=== PATIENT | female | born 1970 | race American Indian/Alaskan Native ===

== ENCOUNTER 2018-06-26 09:31 | Outpatient (CLI) | payer BC ==
[2018-06-26 10:32] LABS: Hematocrit 44.2 % (30.3-42.9); Hemoglobin 14.8 gm/dl (10.1-14.3); Mean Corpuscular HGB Conc 33 % (30-34); Mean Corpuscular Hemoglobin 29 pg (28-32); Mean Corpuscular Volume 88 fl (79-97); Red Blood Count 5.04 M/mm3 (3.65-5.03)
[2018-06-26 10:33] LABS: Platelet Count 316 K/mm3 (140-440)
[2018-06-26 10:37] LABS: Bilirubin,Urine NEG (Negative); Blood,Urine MOD (Negative); Color,Urine Yellow (Yellow); Mucus,Urine FEW /HPF; Protein,Urine <15 mg/dL mg/dL (Negative); Urobilinogen,Urine < 2.0 mg/dL (<2.0)
[2018-06-26 10:49] LABS: Chol/HDL Ratio 4.1 %
[2018-06-26 10:50] LABS: Alanine Aminotransferase 17 units/L (7-56); Albumin 4.3 g/dL (3.9-5); BUN/Creatinine Ratio 13; Blood Urea Nitrogen 10 mg/dL (7-17); Calcium 9.2 mg/dL (8.4-10.2); Hemolysis Index 9
[2018-06-26 12:15] LABS: Free T4 (Free Thyroxine) 1.18 ng/dL (0.76-1.46); Hepatitis A Antibody IgM Non-Reactive (NonReactive); Hepatitis B Core IgM Non-Reactive (NonReactive); Hepatitis B Surface Antigen Non-Reactive (Negative); Hepatitis C Virus Antibody Non-Reactive (NonReactive)
--- NOTE | 2018-06-26 15:32 | Mammography Report ---
BILATERAL DIGITAL SCREENING MAMMOGRAM with CAD: 06/26/18 CLINICAL: Routine screening. COMPARISON:None available. However, a prior mammogram was apparently done at [facility]. FINDINGS: The breasts are mostly fatty. Left asymmetries on both views require comparison with the prior mammogram or additional imaging.No architectural distortion or suspicious calcifications.The right breast is negative. IMPRESSION: Left asymmetries requiring further evaluation. BI-RADS CATEGORY: 0 -- Additional Evaluation Required RECOMMENDATION: Comparison with a previous mammogram. We will attempt to obtain a prior mammogram for comparison. If we do not obtain a prior mammogram within 30 days, a revised report will be issued recommending a recall for additional imaging. Please be advised that the patient should not schedule an appointment for return until adequate time (at least 2 weeks) has passed for us to obtain the prior mammogram. ACR BI-RADS MAMMOGRAPHIC CODES: 0 = Needs additional imaging evaluation; 1 = Negative; 2 = Benign; 3 = Probably benign; 4 = Suspicious; 5 = Malignant; 6 = Known biopsy-proven malignancy COMMENT: 1. Dense breast tissue, i.e., adenosis, fibrocystic changes, etc., may obscure an underlying neoplasm. 2. Approximately 10% of cancers are not detected with mammography. 3. A negative mammography report should not delay biopsy if a clinically suspicious mass is present. COMMENT: Patient follow-up letters are generated via our [employer] application.
== END 2018-06-26 09:32 | disposition home or self-care (01) ==
LOC: LAB 09:31 → MAMMO 09:31
PROVIDERS: ATTEND Nurse Practitioner Adult Health
DX: Z12.31 Encounter for screening mammogram for malignant neoplasm of breast (principal); Z88.0 Allergy status to penicillin
CPT/HCPCS: 36415; 77067; 80053; 80061; 80074; 81001; 82306; 83036; 84439; 84443; 84481; 85027; 86592; 87529; 87591; 87806

== ENCOUNTER 2019-01-17 12:51 | Outpatient (CLI) | payer BC ==
[2019-01-17 13:34] LABS: Hematocrit 41.4 % (30.3-42.9); Hemoglobin 14.1 gm/dl (10.1-14.3); Mean Corpuscular HGB Conc 34 % (30-34); Mean Corpuscular Volume 88 fl (79-97); Platelet Count 367 K/mm3 (140-440)
[2019-01-17 14:11] LABS: Free T4 (Free Thyroxine) 1.12 ng/dL (0.76-1.46)
[2019-01-17 14:13] LABS: Alanine Aminotransferase 15 units/L (7-56); BUN/Creatinine Ratio 10; Blood Urea Nitrogen 9 mg/dL (7-17); Calcium 9.1 mg/dL (8.4-10.2); Chol/HDL Ratio 3.37 %; HDL Cholesterol 51 mg/dL (40-59); Hemolysis Index 3; LDL Cholesterol,Direct 114 mg/dL (50-130)
[2019-01-17 21:20] LABS: Hepatitis B Surface Antigen Non-Reactive (Negative); Hepatitis C Virus Antibody Non-Reactive (NonReactive)
[2019-01-23 06:57] LABS: Vitamin D, 25-OH, D2 <4 ng/mL
== END 2019-01-17 12:52 | disposition home or self-care (01) ==
LOC: LAB 12:51
PROVIDERS: ATTEND Urology
DX: E78.00 Pure hypercholesterolemia, unspecified (principal); I10 Essential (primary) hypertension; E66.01 Morbid (severe) obesity due to excess calories; F41.1 Generalized anxiety disorder; M72.2 Plantar fascial fibromatosis; R31.21 Asymptomatic microscopic hematuria; Z79.890 Hormone replacement therapy
CPT/HCPCS: 36415; 80053; 80061; 80074; 82306; 83036; 84439; 84443; 84481; 85027; 86592; 87086; 87529; 87806

== ENCOUNTER 2019-02-04 09:31 | Day surgery (SDC) | payer BC ==
[~2019-02-04 09:31] MED LIST: FLAGYL 500 MG/100 ML 500 MG/100 ML BAG IV NR
[2019-02-04] MEDS ORDERED: FLAGYL 500 MG/100 ML 500 MG/100 ML BAG IV NR (10:00)
[2019-02-04] MEDS ORDERED: NACL 0.9% 1000 ML 1,000 ML ONE (10:37)
[2019-02-04] MEDS ORDERED: NACL 0.9% 1000 ML 1,000 ML IV SCH (11:00)
[2019-02-04] MEDS ORDERED: SUBLIMAZE ONE ×2 (11:21→11:49)
[2019-02-04] MEDS ORDERED: DIPRIVAN 10 MG/ML IV ONE (11:21)
[2019-02-04] MEDS ORDERED: XYLOCAINE MPF 2% ONE (11:21)
[2019-02-04] MEDS ORDERED: DECADRON ONE (11:36)
[2019-02-04] MEDS ORDERED: NEO SYNEPHRINE ONE (11:36)
[2019-02-04] MEDS ORDERED: ZOFRAN ONE (11:36)
[2019-02-04] MEDS ORDERED: DILAUDID IV PRN (11:37)
[2019-02-04] MEDS ORDERED: MORPHINE IV PRN (11:37)
--- NOTE | 2019-02-04 11:37 | Anesthesia Consultation ---
Anesthesia Consult and Med Hx - Airway Anesthetic Teeth Evaluation: Good ROM Head & Neck: Adequate Mental/Hyoid Distance: Adequate Mallampati Class: Class II Intubation Access Assessment: Good - Pulmonary Exam CTA: Yes - Cardiac Exam Cardiac Exam: RRR - Pre-Operative Health Status ASA Pre-Surgery Classification: ASA3 Proposed Anesthetic Plan: General - Pulmonary Hx Smoking: No Hx Sleep Apnea: Yes (DX SLEEP APNEA , NO CPAP USE.) - Cardiovascular System Hx Hypertension: Yes (2006) - Central Nervous System Hx Back Pain: Yes - Other Systems Hx Cancer: No
--- NOTE | 2019-02-04 11:37 | Anesthesia Day of Surgery ---
Anesthesia Day of Surgery - Day of Surgery Patient Examined: Yes Patient H&P Reviewed: Yes Patient is NPO: Yes
[2019-02-04] MEDS ORDERED: WATER FOR IRRIG STERILE IR ONE ×2 (11:46)
--- NOTE | 2019-02-04 11:56 | Short Stay Summary ---
Short Stay Documentation Date of service: 02/04/19 - History H&P: obtained from office - Allergies and Medications Current Medications: Allergies ciprofloxacin [From Cipro] Allergy (Verified 01/22/19 18:07) Itching erythromycin base [From E-Mycin] Allergy (Verified 01/22/19 18:07) Hives vancomycin Allergy (Verified 01/22/19 18:07) Hives Home Medications Medication Instructions Recorded Confirmed Last Taken Type Estradiol 2 mg PO DAILY 01/22/19 02/04/19 02/03/19 21:00 History Ezetimibe [Zetia] 10 mg PO QDAY 01/22/19 02/04/19 02/03/19 21:00 History Mirabegron [Myrbetriq] 25 mg PO QDAY 01/22/19 02/04/19 02/03/19 21:00 History Naproxen [Naprosyn] 500 mg PO PRN PRN 01/22/19 01/22/19 Unknown History Phentermine HCl [Adipex-P] 37.5 mg PO QAM 01/22/19 01/22/19 01/22/19 History amLODIPine [Norvasc] 10 mg PO DAILY 01/22/19 02/04/19 02/03/19 21:00 History traMADol [Ultram] 50 mg PO Q4HR PRN 01/22/19 01/22/19 Unknown History Active Medications Hydromorphone HCl (Dilaudid) 0.5 mg IV Q10MIN PRN PRN Reason: Pain , Severe (7-10) Stop: 02/04/19 23:00 Sodium Chloride (Nacl 0.9% 1000 Ml) 1,000 mls @ 75 mls/hr IV DIRECT ÓSCAR Last Admin: 02/04/19 10:45 Dose: 75 mls/hr Documented by: Morphine Sulfate (Morphine) 4 mg IV Q10MIN PRN PRN Reason: Pain , Severe (7-10) Stop: 02/04/19 23:38 - Brief post op/procedure progress note Date of procedure: 02/04/19 Pre-op diagnosis: hematuria Post-op diagnosis: same Procedure: cysto, rpg, hydrodistention (500cc) Anesthesia: GETA Surgeon: TYLER DUCKWORTH Estimated blood loss: minimal Pathology: none Condition: stable - Hospital course Hospital course: macrobid & norco on chart Short Stay Discharge Plan Follow up with: CINDY BARRERA MD [Primary Care Provider] - 7 Days
[2019-02-04] MEDS ORDERED: NORCO 5/325 PO PRN (12:39)
[2019-02-04] MEDS ORDERED: NORCO 5/325 ONE (12:40)
[2019-02-04 13:21] VITALS: BP 127/58
--- NOTE | 2019-02-04 15:53 | Operative Report ---
PREOPERATIVE DIAGNOSIS: Hematuria. POSTOPERATIVE DIAGNOSIS: Hematuria. PROCEDURE: Cystoscopy, bilateral retrograde pyelograms, hydrodistention (500 mL). SURGEON: Leonel Law MD ANESTHESIA: General. ESTIMATED BLOOD LOSS: Minimal. FLUIDS: Crystalloid. COMPLICATIONS: No complications. INDICATIONS: This patient is a 48-year-old female who presented to the office with hematuria and now she complains of urinary tract infections and urinary incontinence. She previously was seen by Dr. Clementina Alfred in 2006 for urinary incontinence. She now sees Dr. Davis Medina. She underwent a recent CT of abdomen and pelvis in December 2017, normal kidneys, positive degenerative joint disease of the spine. Due to her urinary incontinence, I started empirically Myrbetriq 25 mg daily and Kegel exercises. We will proceed with cystoscopy, but she understands she may require urodynamic testing also. DESCRIPTION OF PROCEDURE: The patient was taken to the operative suite, placed in a supine position. After adequate general anesthesia, placed in a dorsal lithotomy position, prepped and draped in a sterile fashion. Pancystourethroscopy was performed with 22-Hong Konger Storz cystoscope, no urethral abnormalities in her bladder, no tumors or stones. Both ureteral orifices are in normal position. 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 Bilateral retrograde pyelograms were obtained with an 8-H[place] Konger Rojelio catheter and 8 mL of contrast. No filling defects or obstruction. Hydrodistention revealed a bladder capacity of 500 mL, did reveal a few petechial hemorrhage, but looks like it is the irritation of the pseudomembranous trigonitis. Her bladder was drained. She was extubated and taken to recovery room. She will go home on Macrobid and [place] and follow up in the office. JOB# [id number] ALBERTO/NTS
--- NOTE | 2019-02-04 17:28 | Post Anesthesia Evaluation ---
- Post Anesthesia Evaluation Patient Participated: Yes Airway Patent: Yes Stable Respiratory Function: Yes Nausea/Vomiting: No Temp > 96.8F: Yes Pain Manageable: Yes Adequeate Hydration: Yes Anesthesia Complications: No Block Receding Appropriately: Not Applicable Patient on Ventilator: No
--- NOTE | 2019-02-05 07:26 | Fluoroscopy Report ---
FLUOROSCOPY RETROGRADE UROGRAPHY: HISTORY: Microscopic hematuria. FINDINGS: Fluoroscopy was provided by radiology during retrograde urography by the urologist. 8 fluoroscopic images were captured. There is adequate filling of the ureters and intrarenal collecting systems with no filling defects or anatomic abnormalities identified. Please correlate with the procedural report if needed. IMPRESSION: Retrograde pyelograms within normal limits.
== END 2019-02-04 14:10 | disposition home or self-care (01) ==
LOC: OR 09:31
PROVIDERS: ATTEND Urology
DX: R31.29 Other microscopic hematuria (principal); N39.46 Mixed incontinence; K21.9 Gastro-esophageal reflux disease without esophagitis; E78.00 Pure hypercholesterolemia, unspecified; I10 Essential (primary) hypertension; G47.30 Sleep apnea, unspecified; Z87.440 Personal history of urinary (tract) infections; Z88.8 Allergy status to other drugs, medicaments and biological substances; Z79.899 Other long term (current) drug therapy; Z98.51 Tubal ligation status; Z90.710 Acquired absence of both cervix and uterus
CPT/HCPCS: 52005; 74420; A4217; C1758; J1100; J2370; J2405; J2704; J3010; J7030; Q9967

== ENCOUNTER 2019-06-28 07:22 | Outpatient (CLI) | payer BC ==
--- NOTE | 2019-07-01 12:17 | Mammography Report ---
DIGITAL SCREENING MAMMOGRAM WITH CAD, 06/28/2019 INDICATION: Routine screening mammography. TECHNIQUE: Digital DIGITAL SCREENING MAMMOGRAM WITH CAD, 06/28/2019 INDICATION: Routine screening mammography. TECHNIQUE: Digital bilateral 2D mammography was obtained in the craniocaudal and mediolateral obliq ue projections. This examination was interpreted with the benefit of Computer-Aided Detection analysi s. COMPARISON: 06/26/2018 FINDINGS: Breast Density: There are scattered areas of fibroglandular density. There is no evidence of dominant mass, suspicious calcifications or architectural distortion in eithe r breast. IMPRESSION: No mammographic evidence of malignancy. Follow up recommendation: Routine yearly BI-RADS Category 1: Negative. A "normal" or negative report should not discourage follow up or biopsy of a clinically significant f inding. A written summary of these findings will be mailed to the patient. The patient will be entered into a mammography reporting system which will generate a reminder letter for the patient's next appointmen t at the appropriate interval. The [employer] recommends yearly mammograms starting at age 40 and continuing as l jordyn as a woman is in good health. Breast MRI is recommended for women with an approximate 20-25% or greater lifetime risk of breast cancer, including women with a strong family history of breast or ova amanda cancer or who have been treated for Hodgkin's disease. 2D mammography was obtained in the craniocaudal and mediolateral oblique projections. This examinati on was interpreted with the benefit of Computer-Aided Detection analysis. Signer Name: Xavier Bonilla MD Signed: 07/01/2019 12:12 PM Workstation Name: [id number]
== END 2019-06-28 07:23 | disposition home or self-care (01) ==
LOC: MAMMO 07:22
PROVIDERS: ATTEND Internal Medicine
DX: Z12.31 Encounter for screening mammogram for malignant neoplasm of breast (principal); E78.00 Pure hypercholesterolemia, unspecified; K21.9 Gastro-esophageal reflux disease without esophagitis; Z90.710 Acquired absence of both cervix and uterus
CPT/HCPCS: 77067

== ENCOUNTER 2019-11-14 10:47 | Outpatient (CLI) | payer BC ==
[2019-11-14 11:41] LABS: Alanine Aminotransferase 27 units/L (7-56); Albumin 4.3 g/dL (3.9-5); BUN/Creatinine Ratio 13; Blood Urea Nitrogen 12 mg/dL (7-17); Calcium 9.2 mg/dL (8.4-10.2); Chol/HDL Ratio 3.82 %; HDL Cholesterol 50 mg/dL (40-59); Hemolysis Index 11; LDL Cholesterol,Direct 136 mg/dL (50-130)
--- NOTE | 2019-11-14 12:59 | XRay Report ---
CERVICAL SPINE 6 VIEWS INDICATION / CLINICAL INFORMATION: M54.2 CERVICALGIA. COMPARISON: None available. FINDINGS: Mild narrowing of the C5-6 disc space with small anterior osteophytes. Anterior osteophytes are also seen at C3-4. No other significant skeletal abnormality. Alignment is normal. Signer Name: Ab Medina MD FACR Signed: 11/14/2019 12:55 PM Workstation Name: [id number]
--- NOTE | 2019-11-14 13:00 | XRay Report ---
Left calcaneus INDICATION: Left heel pain.. COMPARISON: None. FINDINGS: Frontal of angle and lateral views of the calcaneus stable left were obtained. There is no evidence of fracture or dislocation. Small plantar calcaneal spur. A tiny ossific fragment lateral to the cuboid is felt to represent an os peroneum, a normal anatomic variant. IMPRESSION: No evidence of acute osseous injury. Signer Name: Miguel Baird MD Signed: 11/14/2019 12:55 PM Workstation Name: [id number]
--- NOTE | 2019-11-14 13:00 | XRay Report ---
LEFT FOOT 3 VIEWS INDICATION: M79.671 PAIN IN FOOT. Left foot pain after twisting foot laterally. COMPARISON: None. IMPRESSION: No acute osseous or soft tissue abnormality. No significant DJD. Small plantar spur i s noted. Signer Name: Jericho Null Jr, MD Signed: 11/14/2019 12:55 PM Workstation Name: [id number]
== END 2019-11-14 10:48 | disposition home or self-care (01) ==
LOC: XRAY 10:47
PROVIDERS: ATTEND Family Medicine
DX: M77.32 Calcaneal spur, left foot (principal); M48.02 Spinal stenosis, cervical region; M25.78 Osteophyte, vertebrae; I10 Essential (primary) hypertension; E78.5 Hyperlipidemia, unspecified; M79.671 Pain in right foot
CPT/HCPCS: 36415; 72050; 80053; 80061; 83036

== ENCOUNTER 2019-11-25 07:12 | Outpatient (CLI) | payer BC ==
--- NOTE | 2019-11-25 08:44 | Magnetic Resonance Report ---
MRI CERVICAL SPINE WITHOUT CONTRAST INDICATION / CLINICAL INFORMATION: MAIN: M54.2Cervicalgia & lt arm pain. TECHNIQUE: Multisequence, multiplanar images of the cervical spine were obtained. COMPARISON: Cervical spine series 11/14/2019 FINDINGS: CRANIOCERVICAL JUNCTION:No significant abnormality. ALIGNMENT: Normal alignment is maintained throughout the cervical region. VERTEBRAE:Bone marrow signal intensity is normally maintained throughout the cervical and visualized upper thoracic vertebrae. VISUALIZED SPINAL CORD: No intrinsic cord lesions are identified. [id number] ANALYSIS: C2-3: Small central disc protrusion flattens the thecal sac slightly. Central spinal canal and neurof oramina are adequately maintained. C3-4: Prominent anterior osteophyte formation is observed. Moderate central disc protrusion effaces t hecal sac deformity but does not result in cord compression. Central spinal canal and neuroforamina a re adequately maintained. C4-5: Mild anterior osteophyte formation is noted. Small central disc protrusion flattens the thecal sac slightly. There is no associated cord deformity. Mild central canal stenosis is evident with the AP diameter of the central spinal canal and the order of 8 mm. There is no indication of foraminal na rrowing. C5-6: Disc desiccation is noted. Mild posterior disc osteophyte complex flattens the thecal sac sligh tly. There is decreased CSF surrounding the cord at this level. There is no definite indication of co rd compression. AP diameter of the central spinal canal is decreased slightly at 9 mm. Moderate left- sided C6 nerve root neuroforaminal stenosis is evident. C6-7: Small broad-based disc protrusion flattens the thecal sac slightly. This does not result in cor d compression. Decreased CSF surrounds the cord. AP diameter of the spinal canal is mildly narrowed a t 9 mm. Mild bilateral neuroforaminal narrowing is evident. C7-T1: Uncovertebral arthropathy contributes to mild left-sided C8 nerve root neuroforaminal stenosis . Central spinal canal and left C8 nerve root neuroforamina are adequately maintained. PARASPINAL SOFT TISSUES: No significant abnormality. ADDITIONAL FINDINGS: None. IMPRESSION: 1. Multifocal small to moderate-sized disc protrusions as described level by level above. 2. Mild narrowing of the central spinal canal is observed at C4-5, C5-6 and C6-7 levels. 3. Moderate left-sided C6 nerve root neural foraminal stenosis and mild bilateral foraminal narrowing at the C7 nerve root level. Signer Name: Marbin Hicks MD Signed: 11/25/2019 8:40 AM Workstation Name: [id number]
== END 2019-11-25 07:13 | disposition home or self-care (01) ==
LOC: MRI 07:12
PROVIDERS: ATTEND Family Medicine
DX: M25.78 Osteophyte, vertebrae (principal); M50.21 Other cervical disc displacement, high cervical region; M48.02 Spinal stenosis, cervical region
CPT/HCPCS: 72141

== ENCOUNTER 2020-01-17 11:19 | Outpatient (CLI) | payer BC ==
[2020-01-17 11:51] LABS: Basophils # (Auto) 0.1 K/mm3 (0.0-0.1); Basophils % (Auto) 1.1 % (0.0-1.8); Eosinophils # (Auto) 0.3 K/mm3 (0.0-0.4); Eosinophils % (Auto) 4.2 % (0.0-4.3); Hematocrit 44.5 % (30.3-42.9); Hemoglobin 14.8 gm/dl (10.1-14.3); Lymphocytes # (Auto) 2.4 K/mm3 (1.2-5.4); Mean Corpuscular HGB Conc 33 % (30-34); Mean Corpuscular Volume 88 fl (79-97); Monocytes # (Auto) 0.6 K/mm3 (0.0-0.8); Monocytes % (Auto) 7.1 % (0.0-7.3); Platelet Count 327 K/mm3 (140-440); Red Blood Count 5.04 M/mm3 (3.65-5.03); Red Cell Distribution Width 13.8 % (13.2-15.2)
[2020-01-17 12:13] LABS: Alanine Aminotransferase 13 units/L (7-56); Albumin 4.3 g/dL (3.9-5); BUN/Creatinine Ratio 10; Blood Urea Nitrogen 10 mg/dL (7-17); Calcium 9.3 mg/dL (8.4-10.2); Hemolysis Index 3; LDL Cholesterol,Direct 122 mg/dL (50-130)
[2020-01-17 12:15] LABS: Hepatitis B Surface Antigen Non-Reactive (Negative); Hepatitis C Virus Antibody Non-Reactive (NonReactive)
[2020-01-17 13:22] LABS: Chol/HDL Ratio 3.77 %; HDL Cholesterol 48 mg/dL (40-59)
== END 2020-01-17 11:20 | disposition home or self-care (01) ==
LOC: LAB 11:19
PROVIDERS: ATTEND Family Medicine
DX: Z11.3 Encounter for screening for infections with a predominantly sexual mode of transmission (principal); G62.9 Polyneuropathy, unspecified; E78.5 Hyperlipidemia, unspecified; M54.2 Cervicalgia; M62.838 Other muscle spasm; I10 Essential (primary) hypertension
CPT/HCPCS: 36415; 80053; 80061; 80074; 83036; 85025; 86592; 86689; 87529

== ENCOUNTER 2020-07-28 10:25 | Outpatient (CLI) | payer BC ==
[2020-07-28 12:23] LABS: Alanine Aminotransferase 14 units/L (7-56); Albumin 4.1 g/dL (3.9-5); BUN/Creatinine Ratio 11; Blood Urea Nitrogen 11 mg/dL (7-17); Calcium 9.4 mg/dL (8.4-10.2); Chol/HDL Ratio 3.71 %; HDL Cholesterol 52 mg/dL (40-59); Hemolysis Index 6; LDL Cholesterol,Direct 130 mg/dL (50-130)
--- NOTE | 2020-07-28 12:23 | Mammography Report ---
DIGITAL SCREENING MAMMOGRAM WITH CAD, 07/28/2020 CLINICAL INFORMATION / INDICATION: Routine screening mammography. TECHNIQUE: Digital bilateral 2D mammography was obtained in the craniocaudal and mediolateral obliqu e projections. This examination was interpreted with the benefit of Computer-Aided Detection analysis . COMPARISON: 06/28/2019, 06/26/2018 FINDINGS: Breast Density: There are scattered areas of fibroglandular density. No dominant mass, suspicious calcifications, or architectural distortion in either breast. IMPRESSION: No mammographic evidence of malignancy. Follow up recommendation: Routine yearly BI-RADS Category 1: Negative. A "normal" or negative report should not discourage follow up or biopsy of a clinically significant f inding. A written summary of these findings will be mailed to the patient. The patient will be entered into a mammography reporting system which will generate a reminder letter for the patient's next appointmen t at the appropriate interval. The [employer] recommends yearly mammograms starting at age 40 and continuing as l jordyn as a woman is in good health. Breast MRI is recommended for women with an approximate 20-25% or greater lifetime risk of breast cancer, including women with a strong family history of breast or ova amanda cancer or who have been treated for Hodgkin's disease. Signer Name: Leon Godoy MD Signed: 07/28/2020 12:19 PM Workstation Name: [id number]
[2020-07-28 14:35] LABS: Hepatitis B Surface Antigen Non-Reactive (Negative); Hepatitis C Virus Antibody Non-Reactive (NonReactive)
[2020-08-03 13:46] LABS: HIV-1 Antibody Differentiation SEE SCANNED RESULT; HIV-2 Antibody Differentiation SEE SCANNED RESULT
== END 2020-07-28 10:26 | disposition home or self-care (01) ==
LOC: MAMMO 10:25
PROVIDERS: ATTEND Family Medicine
DX: Z12.31 Encounter for screening mammogram for malignant neoplasm of breast (principal); Z91.89 Other specified personal risk factors, not elsewhere classified; Z13.1 Encounter for screening for diabetes mellitus; N64.89 Other specified disorders of breast
CPT/HCPCS: 36415; 77067; 80053; 80061; 80074; 83036; 86592; 86689; 87529

== ENCOUNTER 2021-01-01 08:45 | Outpatient (CLI) | payer BC ==
[2021-01-01 10:10] LABS: Alanine Aminotransferase 19 units/L (7-56); Albumin 4.1 g/dL (3.9-5); BUN/Creatinine Ratio 11; Blood Urea Nitrogen 9 mg/dL (7-17); Calcium 8.7 mg/dL (8.4-10.2); Hemolysis Index 44
[2021-01-01 10:45] LABS: Hematocrit 46.6 % (30.3-42.9); Hemoglobin 15.9 gm/dl (10.1-14.3); Red Blood Count 5.26 M/mm3 (3.65-5.03)
[2021-01-01 10:46] LABS: Mean Corpuscular HGB Conc 34 % (30-34); Mean Corpuscular Volume 89 fl (79-97); Platelet Count 69 K/mm3 (140-440); Red Cell Distribution Width 13.9 % (13.2-15.2)
== END 2021-01-01 08:46 | disposition home or self-care (01) ==
LOC: LAB 08:45
PROVIDERS: ATTEND Family Medicine
DX: Z11.59 Encounter for screening for other viral diseases (principal); M79.10 Myalgia, unspecified site; L29.9 Pruritus, unspecified; R71.8 Other abnormality of red blood cells
CPT/HCPCS: 36415; 80053; 82550; 82728; 85025; 86140

== ENCOUNTER 2021-01-05 10:56 | Outpatient (CLI) | payer BC ==
[2021-01-05 11:34] LABS: Basophils % (Auto) 0.4 % (0.0-1.8); Eosinophils # (Auto) 0.4 K/mm3 (0.0-0.4); Eosinophils % (Auto) 3.7 % (0.0-4.3); Hematocrit 44.3 % (30.3-42.9); Lymphocytes # (Auto) 3.1 K/mm3 (1.2-5.4); Mean Corpuscular HGB Conc 34 % (30-34); Mean Corpuscular Volume 89 fl (79-97); Monocytes # (Auto) 0.8 K/mm3 (0.0-0.8); Platelet Count 342 K/mm3 (140-440); Red Blood Count 4.98 M/mm3 (3.65-5.03)
[2021-01-05 12:01] LABS: Hepatitis B Surface Antigen Non-Reactive (Negative); Hepatitis C Virus Antibody Non-Reactive (NonReactive)
[2021-01-18 06:59] LABS: HIV-1 Antibody Differentiation SEE SCANNED RESULT; HIV-2 Antibody Differentiation SEE SCANNED RESULT
== END 2021-01-05 10:57 | disposition home or self-care (01) ==
LOC: LAB 10:56
PROVIDERS: ATTEND Family Medicine
DX: Z13.1 Encounter for screening for diabetes mellitus (principal); R71.8 Other abnormality of red blood cells
CPT/HCPCS: 36415; 80074; 83036; 85025; 86592; 86689; 87529; 87591

== ENCOUNTER 2021-02-13 11:00 | Outpatient (CLI) | payer BC | END 2021-02-13 11:01 | disposition home or self-care (01) | LOC: LAB 11:00 | PROVIDERS: ATTEND Family Medicine | DX: Z11.59 Encounter for screening for other viral diseases (principal) | CPT/HCPCS: 36415 ==

== ENCOUNTER 2021-08-12 09:53 | Outpatient (CLI) | payer BC ==
[2021-08-12 16:25] LABS: Basophils # (Auto) 0.1 K/mm3 (0.0-0.1); Basophils % (Auto) 0.9 % (0.0-1.8); Eosinophils # (Auto) 0.4 K/mm3 (0.0-0.4); Eosinophils % (Auto) 3.9 % (0.0-4.3); Hematocrit 41.8 % (30.3-42.9); Lymphocytes # (Auto) 2.7 K/mm3 (1.2-5.4); Lymphocytes % (Auto) 24.9 % (13.4-35.0); Mean Corpuscular HGB Conc 34 % (30-34); Mean Corpuscular Volume 88 fl (79-97); Monocytes # (Auto) 0.5 K/mm3 (0.0-0.8); Monocytes % (Auto) 4.9 % (0.0-7.3); Platelet Count 320 K/mm3 (140-440); Red Blood Count 4.72 M/mm3 (3.65-5.03); Red Cell Distribution Width 13.5 % (13.2-15.2)
[2021-08-12 16:51] LABS: Alanine Aminotransferase 18 units/L (7-56); Albumin 4.2 g/dL (3.9-5); BUN/Creatinine Ratio 12; Blood Urea Nitrogen 11 mg/dL (7-17); Calcium 9.1 mg/dL (8.4-10.2); Chol/HDL Ratio 3.19 %; HDL Cholesterol 56 mg/dL (40-59); Hemolysis Index 3; LDL Cholesterol,Direct 110 mg/dL (50-130)
--- NOTE | 2021-08-13 16:14 | Mammography Report ---
DIGITAL SCREENING MAMMOGRAM WITH CAD, 08/12/2021 CLINICAL INFORMATION / INDICATION: Routine screening mammography. = TECHNIQUE: Digital bilateral 2D mammography was obtained in the craniocaudal and mediolateral obliqu e projections. This examination was interpreted with the benefit of Computer-Aided Detection analysis . COMPARISON: 06/28/2019 FINDINGS: Breast Density: There are scattered areas of fibroglandular density. No dominant mass, suspicious calcifications, or architectural distortion in either breast. No interval change. IMPRESSION: No mammographic evidence of malignancy. Follow up recommendation: Routine yearly BI-RADS Category 1: Negative. A "normal" or negative report should not discourage follow up or biopsy of a clinically significant f inding. A written summary of these findings will be mailed to the patient. The patient will be entered into a mammography reporting system which will generate a reminder letter for the patient's next appointmen t at the appropriate interval. The [employer] recommends yearly mammograms starting at age 40 and continuing as l jordyn as a woman is in good health. Breast MRI is recommended for women with an approximate 20-25% or greater lifetime risk of breast cancer, including women with a strong family history of breast or ova amanda cancer or who have been treated for Hodgkin's disease. Signer Name: Liset Crowder MD Signed: 08/13/2021 4:10 PM Workstation Name: [id number]
== END 2021-08-12 09:54 | disposition home or self-care (01) ==
LOC: MAMMO 09:53
PROVIDERS: ATTEND Family Medicine
DX: Z12.31 Encounter for screening mammogram for malignant neoplasm of breast (principal); Z13.1 Encounter for screening for diabetes mellitus; E78.5 Hyperlipidemia, unspecified; I10 Essential (primary) hypertension
CPT/HCPCS: 36415; 77067; 80053; 80061; 83036; 85025; 86592; 87529

== ENCOUNTER 2022-02-01 10:09 | Outpatient (CLI) | payer BC ==
--- NOTE | 2022-02-01 14:58 | Magnetic Resonance Report ---
MRI cervical spine without contrast INDICATION: Neck pain COMPARISON: November 2019 report FINDINGS: Overall alignment appears normal. Heterogeneous marrow signal is seen throughout. No cord s ignal abnormality is identified. C2-C3: No spinal canal narrowing or neuroforaminal narrowing C3-C4: Mild uncovertebral degenerative change with small disc osteophyte. No significant neuroforamin al narrowing C4-C5: Uncovertebral degenerative change and disc osteophyte. Mild effacement anterior canal without severe canal narrowing C5-C6: Disc desiccation with posterior disc osteophyte asymmetric to the left. Moderate to severe lef t and mild right neuroforaminal narrowing. Effacement of the canal with mild canal narrowing. C6-C7: Disc desiccation with disc osteophyte with far left lateral component. Moderate left neurofora tasha narrowing. C7-T1: No spinal canal narrowing or neuroforaminal narrowing. IMPRESSION: Multilevel discogenic degenerative change. Disc ossifies or neuroforaminal narrowing at several level s. Please see above level by level description. Signer Name: Timothy Alvarez MD Signed: 02/01/2022 2:54 PM Workstation Name: [email or web address]
== END 2022-02-01 10:10 | disposition home or self-care (01) ==
LOC: MRI 10:09
DX: M47.812 Spondylosis without myelopathy or radiculopathy, cervical region (principal)
CPT/HCPCS: 72141

== ENCOUNTER 2022-04-02 15:02 | Emergency (ER) | payer OTHER, BC ==
[2022-04-02 15:14] VITALS: BP 148/95
[2022-04-02] MEDS ORDERED: IBUPROFEN 800 MG TAB PO ONE (16:10)
[2022-04-02] MEDS ORDERED: HYDROcodone/ACETAMINOPHEN 5-325 MG TAB PO ONE (16:10)
[2022-04-02] MEDS ORDERED: CYCLOBENZAPRINE 10 MG TAB PO ONE (16:10)
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
== END 2022-04-03 07:52 | disposition home or self-care (01) ==
LOC: ED 15:02
DX: R07.9 Chest pain, unspecified (principal); M54.9 Dorsalgia, unspecified; I10 Essential (primary) hypertension; K21.9 Gastro-esophageal reflux disease without esophagitis; Z91.09 Other allergy status, other than to drugs and biological substances; Z79.899 Other long term (current) drug therapy; V89.2XXA Person injured in unspecified motor-vehicle accident, traffic, initial encounter; Y93.89 Activity, other specified; Y92.89 Other specified places as the place of occurrence of the external cause; Y99.8 Other external cause status
CPT/HCPCS: 71045; 99283

== ENCOUNTER 2022-06-02 09:28 | Outpatient (CLI) | payer BC ==
--- NOTE | 2022-06-02 11:44 | Cat Scan Report ---
CT CERVICAL SPINE WITHOUT CONTRAST INDICATION: M54.2 CERVICALGIA. TECHNIQUE: Axial imaging performed through the cervical spine without the use of contrast. Sagittal and coronal reconstructed images were also reviewed. All CT scans at this location are performed us ing CT dose reduction for ALARA by means of automated exposure control. COMPARISON: None FINDINGS: Alignment: There is straightening of the normal cervical lordosis. No subluxation. Bones: There is no acute osseous abnormality. Mild discogenic DJD is identified at C5-6 and C6-7. M ild left neural foraminal narrowing at C5-6 is present. No central canal stenosis. Soft tissues: No acute or significant incidental soft tissue abnormality. IMPRESSION: Mild cervical spondylosis as described. Signer Name: Jericho Null Jr, MD Signed: 06/02/2022 11:40 AM Workstation Name: [id number]
== END 2022-06-02 09:29 | disposition home or self-care (01) ==
LOC: CT 09:28
PROVIDERS: ATTEND Psychiatry & Neurology Neurology
DX: M47.812 Spondylosis without myelopathy or radiculopathy, cervical region (principal)
CPT/HCPCS: 72125